=== PATIENT | female | born 1950 | race Caucasian/White ===

== ENCOUNTER → 2018-08-26 11:46 | Outpatient (CLI) | payer MEDICARE, OTHER, SELFPAY | PROVIDERS: Family Provider Internal Medicine; PCP Internal Medicine; Visit Provider Physician Assistant | DX: A37.90 Whooping cough, unspecified species without pneumonia (principal) | CPT/HCPCS: 87798 ==

== ENCOUNTER → 2020-07-17 20:00 | Outpatient (ROUT) | payer MEDICARE, OTHER, SELFPAY ==
[2020-07-17 20:51] LABS: Aspartate Aminotransferase 54 IU/L (14-36); BUN Creatinine Ratio 25.8 (6-22); Blood Urea Nitrogen 16 mg/dL (7-17); Calcium 10.2 mg/dL (8.4-10.2); Carbon Dioxide 29 mmol/L (22-32); Chloride 106 mmol/L (98-107); Cholesterol 142 mg/dL (140-199); Estimated Glomerular Filt Rate > 60.0 mL/min (>60); Glucose 88 mg/dL (80-110); HDL Cholesterol 39 mg/dL (40-60); LDL Cholesterol Calculated 77 mg/dL (<100); Potassium 4.5 mmol/L (3.4-5.1); Sodium 138 mmol/L (137-145); Triglycerides 130 mg/dL (35-150)
[2020-07-17 20:57] LABS: HEMOLYSIS 84 (0-50)
== END ==
PROVIDERS: Family Provider Internal Medicine; PCP Internal Medicine; Visit Provider Internal Medicine
DX: I10 Essential (primary) hypertension (principal); E78.2 Mixed hyperlipidemia
CPT/HCPCS: 80048; 80061; 84450

== ENCOUNTER → 2021-01-25 14:16 | Outpatient (CLI) | payer MEDICARE, OTHER, SELFPAY ==
--- NOTE | 2021-01-25 14:18 | DI.RAD.S_ITS ---
PROCEDURE: XR LUMBAR SPINE MIN 4V INDICATIONS: BACK PAIN TECHNIQUE: 5 views of the lumbar spine were acquired, including bilateral oblique views. COMPARISON: [facility], , L-SPINE 2-3 VIEWS, 10/05/2013, 11:57. FINDINGS: Bones: 5 nonrib-bearing vertebrae are present. There is normal bony alignment. No vertebral body compression fractures. No suspicious bony lesions. There is mild degenerative disc disease at the thoracolumbar junction and extending through the lumbosacral spine with relative sparing at L5-S1. Facet osteoarthritis becomes progressively more prominent from L2 through L 5, with potential for spinal and foraminal stenosis at L4-5 and L5-S1. Soft tissues: Overlying bowel gas pattern is normal. No suspicious soft tissue calcifications. Oblique images: No pars defects. IMPRESSION: No trauma found, no subluxation identified. Facet osteoarthritis is more prominent in this patient than degenerative disc disease, and raises the potential for spinal and foraminal stenosis at L4-5 and L5-S1. Facet osteoarthritis is relatively prominent at those 2 levels. Dictated by: Zhao Hernandez M.D. on 01/25/2021 at 15:04 Approved by: Zhao Hernandez M.D. on 01/25/2021 at 15:05
== END ==
PROVIDERS: Family Provider Internal Medicine; Referring Provider Physical Medicine & Rehabilitation; Visit Provider Physical Medicine & Rehabilitation
DX: M47.816 Spondylosis without myelopathy or radiculopathy, lumbar region (principal); M47.817 Spondylosis without myelopathy or radiculopathy, lumbosacral region; M48.061 Spinal stenosis, lumbar region without neurogenic claudication
CPT/HCPCS: 72110; 99214

== ENCOUNTER → 2021-02-11 11:11 | Outpatient (CLI) | payer MEDICARE, OTHER, SELFPAY ==
[2021-02-11 16:04] LABS: COVID19 -Nasal RAPID Negative (Negative)
== END ==
PROVIDERS: Family Provider Internal Medicine; PCP Internal Medicine; Visit Provider Physical Medicine & Rehabilitation
DX: Z20.822 Contact with and (suspected) exposure to COVID-19 (principal)
CPT/HCPCS: 87635; C9803

== ENCOUNTER 2021-02-12 14:08 | Outpatient (CLI) | payer MEDICARE, OTHER, SELFPAY ==
[2021-02-12] VITALS (8 sets, daily range): BP systolic 153–189; BP diastolic 73–84; PULSE 62–73; RESP 15–20; O2SAT 98–100
--- NOTE | 2021-02-12 14:11 | DI.RAD.S_ITS ---
PROCEDURE: PAIN L/S TRANSFORAM INJECT BERNARD COMPARISON: [facility], CR, XR LUMBAR SPINE MIN 4V, 01/25/2021, 14:27. INDICATIONS: SPONDYLOSIS FINDINGS: Fluoroscopic spot filming was performed to verify placement of a spinal needles on both sides at the L4-L5 level, as labeled on the films. Appropriate location of the needle tips was confirmed by injection of iodinated contrast. IMPRESSION: Intraprocedural examination within normal limits. Dictated by: Be Corona M.D. on 02/12/2021 at 16:02 Approved by: Be Corona M.D. on 02/12/2021 at 16:02
[2021-02-12] MEDS: MIDAZOLAM 5 MG/5 ML VIAL IV (14:50)
[2021-02-12] MEDS: fentaNYL 100 MCG/2 ML INJ 50 MCG IV (14:50)
[2021-02-12] MEDS: BETAMETHASONE 30 MG/5 ML MDV 6 MG INJ (14:57)
[2021-02-12] MEDS: DEXAMETHASONE 10 MG/ML VIAL 20 MG INJ (14:57)
[2021-02-12] MEDS: BUPIVACAINE 0.25% (PF) VIAL 2 ML INJ (14:57)
[2021-02-12] MEDS: IOPAMIDOL 15 ML VIAL 3 ML INJ (14:57)
[2021-02-12] MEDS: LIDOCAINE 1% 20 ML 10 ML INJ (14:58)
--- NOTE | 2021-02-12 15:08 | PM.PROC.IR.1 ---
Date/Time/Diagnoses Date of procedure: 02/12/21 Time of procedure: 15:08 Pre-procedure diagnosis: 1. FORAMINAL STENOSIS WITH LE SYMPTOMS Procedure Notes Procedure: 1. FLUOROSCOPICALLY GUIDED CONTRAST CONTROLLED TRANSFORAMINAL EPIDURAL STEROID INJECTION - BILATERAL L4/5 TFESI Indications: Sabrina is referred by Dr. Oscar for treatment of Foraminal Stenosis with bilateral LE Symptoms Physician: Saúl Grijalva Total Fluoroscopy time (seconds): 14 Total sedation minutes: 10 Complications: none Procedure in detail & Post-procedure care: FINDINGS Foraminal Nerve Root Compression secondary to disc disease and facet hypertrophy DESCRIPTION OF PROCEDURE Following review of allergy and review of potential side effects and complications, including, but not necessarily limited to, infection, allergic reaction, local tissue breakdown, stroke, temporary or permanent nerve injury, paralysis, and possible , the patient indicated that the patient understood and agreed to proceed. An informed consent document was signed by the patient, witnessed by a nurse, and placed in the patient's chart. Additionally, other treatment options including medications, modalities, and physical therapy were reviewed with the patient. After review of previous anaesthesic history and IV conscious sedation the patient was deemed safe to proceed with today?s procedure with IV conscious sedation as ASA class II designation. Safety time-out was performed to confirm patient ID, procedure to be performed and site of procedure. IV sedation was accomplished with a combination of 2mg of Versed and 50mcg of Fentanyl was administered by the RN after DO order, titrated to patient comfort during the course of the procedure while the patient remained responsive to all verbal commands In the prone position following sterile prep and drape of the lumbar region, the right L4/5 posterior neuroforamen was identified fluoroscopically. The skin was anesthetized via a 25-gauge 1.5-inch needle with 1% lidocaine solution. At this point, a 25-gauge 3.5-inch spinal needle was atraumatically introduced and advanced under fluoroscopic guidance through the posterior right L4/5 neuroforamen to approximately the anterior aspect of the canal. Depth was confirmed on lateral view. Following negative aspiration, injection of approximately 1.5cc of Isovue 200 under live fluoroscopy in the AP view confirmed excellent flow along the nerve root, into the epidural space without vascular or intrathecal uptake observed Radiological data, including multiple fluoroscopic views of the lumbosacral spine, reveal a spinal needle at the right L4/5 posterior neuroforamen. Subsequent views show flow of contrast material flowing superiorly and inferiorly along the nerve root confirming epidural flow. Subsequently, a test dose of 1.5cc of 1% lidocaine solution was administered and patient was observed for two minutes for signs or symptoms of complications, including abdominal pain, shortness of breath, bilateral upper or lower extremity weakness, nausea and vomiting, prior to steroid injection. At this point, a total of 3cc or 20mg of dexamethasone and 6mg betamethasone was injected without incident. Attention was then refocused to the left L4/5 level where the identical procedure was replicated. The procedure tolerated the procedure well without signs or symptoms of complications prior to transfer to the recovery area continued monitoring without incident. The patient was then transferred to the recovery area where they were observed for an appropriate time after the injection. The patient reported a VAS score of 7 prior to the procedure and a post-procedure VAS of 0. POST OP INSTRUCTIONS The patient was provided a Pain Log to continue to record their response to the target-specific procedure prior to follow-up visit with their referring physician. Additionally, specific post-injection care instructions and a contact number to our office were provided if concerns arise regarding possible complications associated with the procedure are suspected.
== END 2021-02-12 15:28 | disposition home or self-care (01) ==
LOC: RAD 14:11
PROVIDERS: Family Provider Internal Medicine; PCP Internal Medicine; Referring Provider Physical Medicine & Rehabilitation; Visit Provider Physical Medicine & Rehabilitation
DX: M48.061 Spinal stenosis, lumbar region without neurogenic claudication (principal); M51.16 Intervertebral disc disorders with radiculopathy, lumbar region
CPT/HCPCS: 64483; 99152; J0702; J1100; J2250; J3010

== ENCOUNTER → 2022-08-08 08:59 | Outpatient (CLI) | payer MEDICARE, OTHER, SELFPAY ==
[2022-08-08 11:27] LABS: Hematocrit 40.2 % (36-46); Hemoglobin 13.8 g/dL (12.0-16.0); Mean Corpuscular HGB Conc 34.4 % (30-36); Mean Corpuscular Hemoglobin 29.1 PG (26-34); Mean Corpuscular Volume 84.7 fL (80-100); Platelet Count 207 X10^3/uL (150-400); Red Blood Cell Count 4.75 X10^6/uL (4.0-5.2); Red Cell Distribution Width 13.8 % (11.6-14.8); White Blood Cell Count 6.4 X10^3/uL (4.5-11.0)
[2022-08-08 11:47] LABS: Alanine Aminotransferase 35 IU/L (<35); Albumin 4.1 g/dL (3.5-5.0); Albumin Globulin Ratio 1.5 (1.0-2.8); Alkaline Phosphatase 84 U/L (38-126); Aspartate Aminotransferase 33 IU/L (14-36); BUN Creatinine Ratio 24.4 (6-22); Bilirubin Total 0.5 mg/dL (0.2-1.3); Blood Urea Nitrogen 19 mg/dL (7-17); Calcium 10.2 mg/dL (8.4-10.2); Carbon Dioxide 27 mmol/L (22-32); Chloride 106 mmol/L (98-107); Cholesterol 180 mg/dL (140-199); Estimated Glomerular Filt Rate > 60 mL/min (>60); Globulin 2.8 g/dL (1.7-4.1); Glucose 88 mg/dL (80-110); HDL Cholesterol 53 mg/dL (40-60); HEMOLYSIS < 15 (0-50); LDL Cholesterol Calculated 112 mg/dL (<100); Potassium 4.6 mmol/L (3.4-5.1); Sodium 141 mmol/L (137-145); Total Protein 6.9 g/dL (6.3-8.2); Triglycerides 75 mg/dL (35-150)
[2022-08-08 12:06] LABS: Vitamin D 25 Hydroxy (D3) 62.5 ng/mL (30.0-100.0)
[2022-08-08 12:28] LABS: TSH w/ Reflex to FT4 3.84 uIU/mL (0.47-4.68)
== END ==
PROVIDERS: Family Provider Internal Medicine; PCP Internal Medicine; Referring Provider Internal Medicine; Visit Provider Internal Medicine
DX: E78.2 Mixed hyperlipidemia (principal); M85.80 Other specified disorders of bone density and structure, unspecified site; I10 Essential (primary) hypertension
CPT/HCPCS: 36415; 80053; 80061; 82306; 84443; 85027

== ENCOUNTER → 2022-08-08 09:06 | Outpatient (CLI) | payer MEDICARE, OTHER, SELFPAY | PROVIDERS: Family Provider Internal Medicine; PCP Internal Medicine; Referring Provider Internal Medicine; Visit Provider Internal Medicine | DX: M85.852 Other specified disorders of bone density and structure, left thigh (principal); M85.851 Other specified disorders of bone density and structure, right thigh; Z78.0 Asymptomatic menopausal state; E78.2 Mixed hyperlipidemia; I10 Essential (primary) hypertension | CPT/HCPCS: 36415; 77080; 80053; 80061; 82306; 84443; 85027 ==

== ENCOUNTER → 2023-08-05 15:26 | Outpatient (CLI) | payer MEDICARE, OTHER, SELFPAY ==
[2023-08-05 17:27] LABS: Aspartate Aminotransferase 45 IU/L (14-36); BUN Creatinine Ratio 22.4 (6-22); Blood Urea Nitrogen 15 mg/dL (7-17); Calcium 10.6 mg/dL (8.4-10.2); Carbon Dioxide 25 mmol/L (22-32); Chloride 105 mmol/L (98-107); Cholesterol 185 mg/dL (140-199); Estimated Glomerular Filt Rate > 60 mL/min (>60); Glucose 85 mg/dL (80-110); HDL Cholesterol 45 mg/dL (40-60); HEMOLYSIS < 15 (0-50); LDL Cholesterol Calculated 111 mg/dL (<100); Potassium 4.2 mmol/L (3.4-5.1); Sodium 138 mmol/L (137-145); Triglycerides 144 mg/dL (35-150)
== END ==
PROVIDERS: Family Provider Internal Medicine; PCP Internal Medicine; Referring Provider Internal Medicine; Visit Provider Internal Medicine
DX: I10 Essential (primary) hypertension (principal); E78.2 Mixed hyperlipidemia
CPT/HCPCS: 36415; 80048; 80061; 84450

== ENCOUNTER → 2024-08-17 14:37 | Outpatient (CLI) | payer MEDICARE, OTHER, SELFPAY ==
[2024-08-17 16:02] LABS: Aspartate Aminotransferase 80 IU/L (14-36); BUN Creatinine Ratio 22.2 (6-22); Blood Urea Nitrogen 18 mg/dL (7-17); Calcium 10.5 mg/dL (8.4-10.2); Carbon Dioxide 27 mmol/L (22-32); Chloride 106 mmol/L (98-107); Cholesterol 145 mg/dL (140-199); Estimated Glomerular Filt Rate > 60 mL/min (>60); Glucose 81 mg/dL (80-110); HDL Cholesterol 46 mg/dL (40-60); HEMOLYSIS < 15 (0-50); LDL Cholesterol Calculated 79 mg/dL (<100); Potassium 4.3 mmol/L (3.4-5.1); Sodium 139 mmol/L (137-145); Triglycerides 98 mg/dL (35-150)
[2024-08-18 15:15] LABS: Hep C Virus Ab w/Reflex Quant NEGATIVE s/c (NEGATIVE)
== END ==
LOC: LAB 14:38
PROVIDERS: Family Provider Internal Medicine; PCP Internal Medicine; Referring Provider Internal Medicine; Visit Provider Internal Medicine
DX: I10 Essential (primary) hypertension (principal); E78.2 Mixed hyperlipidemia; Z20.9 Contact with and (suspected) exposure to unspecified communicable disease; M54.42 Lumbago with sciatica, left side; G89.29 Other chronic pain; N95.1 Menopausal and female climacteric states; M85.80 Other specified disorders of bone density and structure, unspecified site; E66.3 Overweight
CPT/HCPCS: 36415; 80048; 80061; 84450; 86803

== ENCOUNTER → 2025-06-16 14:09 | Outpatient (CLI) | payer MEDICARE, OTHER, SELFPAY ==
--- NOTE | 2025-06-16 14:10 | DI.RAD.S_ITS ---
PROCEDURE: XR DEXA AXIAL SKELETON INDICATIONS: screening COMPARISON: [facility], , XR DEXA AXIAL SKELETON, 08/08/2022, 10:55. FINDINGS: Lumbar Spine: Bone mineral density 1.187 (previously 1.218) g/cm2, T score 1.5 (previously 1.6). Left Femoral Neck: Bone mineral density 0.695 (previously 0.693) g/cm2, T score -1.4 (previously -1.4). Left Hip: Bone mineral density 0.933 (previously 0.903) g/cm2, T score -0.1 (previously -0.3). Fracture Risk Calculation (when applicable): 10-year fracture risk of a major osteoporotic fracture 12 percent and of a hip fracture 2.5 percent. (T score greater or equal to -1.0 to: NORMAL) (T score from -1.1 to -2.4: OSTEOPENIA) (T score less than or equal to -2.5: OSTEOPOROSIS) IMPRESSION: Osteopenia--- recommend repeat DEXA in 2-3 years for reassessment. Follow-up guidelines as follows: Osteoporosis: Consider a repeat DEXA and Vertebral Fracture Assessment (VFA) exam in 2 years or sooner if medically necessary, to reassess this patient's status. Osteopenia: Consider a repeat DEXA in 2-3 years to reassess this patient's status, or if there is a new clinical indication. Normal: Consider a repeat DEXA in 5 years or sooner, or if there is a new clinical indication. All treatment decisions require clinical judgment and consideration of individual patient factors, including patient preferences, comorbidities, previous drug use, risk factors not captured in the FRAX model (e.g., frailty, falls, vitamin D deficiency, increased bone turnover, interval significant decline in bone density ) and possible under- or over-estimation of fracture risk by FRAX. In addition, the NOF Guide recommends that FDA-approved medical therapies be considered in postmenopausal women and men age >= 50 years with a: * Hip or vertebral (clinical or morphometric) fracture * T-score of <=-2.5 at the spine or hip * Ten-year fracture probability by FRAX of >= 3% for hip fracture or >=20% for major osteoporotic fracture. Dictated by: Robel Berry M.D. on 06/16/2025 at 19:05 Approved by: Robel Berry M.D. on 06/16/2025 at 19:10
== END ==
PROVIDERS: PCP Internal Medicine; Referring Provider Internal Medicine; Visit Provider Family Medicine
DX: M85.89 Other specified disorders of bone density and structure, multiple sites (principal)
CPT/HCPCS: 77080

== ENCOUNTER → 2025-06-19 07:05 | Outpatient (CLI) | payer MEDICARE, OTHER, SELFPAY ==
--- NOTE | 2025-06-19 07:06 | DI.MRI.S_ITS ---
PROCEDURE: MR KNEE RT WO CON INDICATIONS: Right knee meniscal tear and colateral ligatment sprain TECHNIQUE: Noncontrast sagittal PD fast spin echo and T2 fast spin echo with fat saturation, sagittal 3-D FLASH with fat saturation; coronal T1 spin echo and PD fast spin echo with fat saturation, and axial PD fast spin echo with fat saturation through the knee. COMPARISON: None. FINDINGS: Image quality: Excellent. Some images are limited by patient motion or pulsation or other artifacts. Menisci: Complex tear of the posterior horn of the medial meniscus extending into the mid body with oblique, and vertical components. Blunting of the apex of the anterior horn of the medial meniscus with subtle irregularity into the anterior root ligament. Medial meniscus is mildly displaced medially on the coronal images. The lateral meniscus is intact. Mild posterior meniscocapsular separation medial and lateral. Cruciate ligaments: Increased T2 weighted signal and thinning of the mid and distal anterior cruciate ligament, injury/strain with intact fibers without complete tear. Medial structures: Mild increased T2 weighted signal/edema surrounding the medial collateral ligament with some increased internal signal/grade 2 injury without complete tear or retraction. Mild increased medial bursal fluid. The semimembranosus tendon insertion is intact. Visualized portions of the pes anserinus tendons appear normal. Lateral structures: The lateral collateral ligament, long and short heads of the biceps femoris tendon appear intact. The popliteus tendon appears normal. Iliotibial band appears normal. Anterior structures: Marked diffuse subchondral edema and edema in the patella predominantly the lateral half likely related to degenerative changes. Bone contusion considered less likely. No definitive fracture line. Mild increased T2 weighted signal, tendinopathy distal quadriceps tendon. Patellar ligament is intact. Patellar alignment is normal. No femoral trochlear dysplasia or ventral trochlear prominence. No edema in the infrapatellar fat pad. Bones and cartilage: Moderate degenerative changes with diffuse cartilaginous thinning and osteophytes with near [id number] configuration in the lateral patellar facet. Diffuse cartilage thinning, subchondral edema and osteophytes in the medial greater than lateral compartments. No gross focal cartilage defect. Joint space: Moderate popliteal cyst measures up to approximately 5 cm cc by 1.5 cm AP by 1.5 cm transverse. There is physiologic knee joint fluid. IMPRESSION: Medial meniscus tear as discussed above posterior horn and midbody. Moderate degenerative changes most notably in the patellofemoral greater than medial greater than lateral compartments as discussed above. Popliteal cyst. Injury/strain anterior cruciate ligament. Grade 2 injury medial collateral ligament. Dictated by: Nakul Purdy M.D. on 06/20/2025 at 11:14 Approved by: Nakul Purdy M.D. on 06/20/2025 at 11:58
== END ==
PROVIDERS: PCP Internal Medicine; Referring Provider Internal Medicine; Visit Provider Physical Medicine & Rehabilitation
DX: S83.231A Complex tear of medial meniscus, current injury, right knee, initial encounter (principal); S83.411A Sprain of medial collateral ligament of right knee, initial encounter; S83.511A Sprain of anterior cruciate ligament of right knee, initial encounter; M71.21 Synovial cyst of popliteal space [Baker], right knee; X58.XXXA Exposure to other specified factors, initial encounter
CPT/HCPCS: 73721

== ENCOUNTER → 2025-08-19 09:37 | Outpatient (CLI) | payer MEDICARE, OTHER, SELFPAY ==
[2025-08-19 10:56] LABS: Alanine Aminotransferase 31 IU/L (<35); Albumin 4.2 g/dL (3.5-5.0); Albumin Globulin Ratio 1.9 (1.0-2.8); Alkaline Phosphatase 70 U/L (38-126); Blood Urea Nitrogen 13 mg/dL (7-17); Calcium 10.2 mg/dL (8.4-10.2); Carbon Dioxide 23 mmol/L (22-32); Chloride 107 mmol/L (98-107); Cholesterol 249 mg/dL (140-199); Estimated Glomerular Filt Rate > 60 mL/min (>60); Globulin 2.2 g/dL (1.7-4.1); Glucose 87 mg/dL (70-99); HDL Cholesterol 60 mg/dL (40-60); HEMOLYSIS < 15 (0-50); Potassium 4.3 mmol/L (3.4-5.1); Sodium 139 mmol/L (137-145); Total Protein 6.4 g/dL (6.3-8.2); Triglycerides 129 mg/dL (35-150)
== END ==
PROVIDERS: PCP Family Medicine; Referring Provider Family Medicine; Visit Provider Family Medicine
DX: I10 Essential (primary) hypertension (principal); E78.2 Mixed hyperlipidemia; R79.89 Other specified abnormal findings of blood chemistry; E83.52 Hypercalcemia
CPT/HCPCS: 36415; 80053; 80061